=== PATIENT | male | born 1980 | race Caucasian/White ===

== ENCOUNTER 2022-11-05 15:18 | Outpatient (CLI) | payer OTHER, SELFPAY ==
[2022-11-05 15:35] LABS: Hematocrit 47.2 % (42.0-52.0); Hemoglobin 15.7 g/dL (14.0-18.0); Mean Corpuscular HGB Conc 33.3 g/dl (32-36); Mean Corpuscular Hemoglobin 30.3 pg (26-34); Mean Corpuscular Volume 90.9 fl (80-100); Mean Platelet Volume 9.8 fl (7.4-10.4); Platelet Count Result 301 k/mm3 (150-375); Red Blood Count 5.19 M/mm3 (4.6-6.20); Red Cell Distribution Width 12.2 % (11.5-14.5)
[2022-11-05 17:07] LABS: Free T4 Free Thyroxine 1.04 ng/mL (0.78-2.19)
[2022-11-05 19:33] LABS: Anion Gap 7 mmol/L (8-16); Blood Urea Nitrogen 15 mg/dL (9-20); Calcium 9.9 mg/dL (8.4-10.2); Carbon Dioxide 30 mmol/L (22-30); Chloride 102 mmol/L (98-107); Cholesterol 179 mg/dL (0-200); Estimated Glomerular Filt Rate > 60; Glucose 84 mg/dL (65-110); HDL Direct 68 mg/dL; Potassium 4.3 mmol/L (3.4-5.0); Sodium 139 mmol/L (137-145); Triglycerides 43 mg/dL (<150)
[2022-11-05 19:44] LABS: LDL Cholesterol Direct 77 mg/dL
[2022-11-05 20:21] LABS: Prostate Specific Antigen 0.3 ng/mL (< OR = 4.0)
== END 2022-11-05 15:19 | disposition home or self-care (01) ==
LOC: ANHLAB 15:20
PROVIDERS: PCP Family Medicine; Visit Provider Family Medicine
DX: F41.9 Anxiety disorder, unspecified (principal); F32.9 Major depressive disorder, single episode, unspecified; E03.9 Hypothyroidism, unspecified; Z13.220 Encounter for screening for lipoid disorders; Z12.5 Encounter for screening for malignant neoplasm of prostate
CPT/HCPCS: 36415; 80048; 80061; 84153; 84439; 84443; 85027; G0103

== ENCOUNTER 2023-09-01 10:17 | Outpatient (CLI) | payer OTHER, SELFPAY | END 2023-09-01 10:18 | disposition home or self-care (01) | LOC: ANHLAB 10:19 | PROVIDERS: PCP Family Medicine; Visit Provider Nurse Practitioner Family | DX: Z20.828 Contact with and (suspected) exposure to other viral communicable diseases (principal) | CPT/HCPCS: 36415; 86747 ==

== ENCOUNTER 2023-11-11 14:39 | Outpatient (CLI) | payer OTHER, SELFPAY ==
[2023-11-11 15:39] LABS: Anion Gap 9 mmol/L (4-12); Blood Urea Nitrogen 16 mg/dL (9-20); Calcium 9.3 mg/dL (8.4-10.2); Carbon Dioxide 30 mmol/L (22-30); Chloride 96 mmol/L (98-107); Cholesterol 174 mg/dL (0-200); Estimated Glomerular Filt Rate > 60; Glucose 90 mg/dL (65-110); HDL Direct 71 mg/dL; Sodium 135 mmol/L (137-145); Triglycerides 34 mg/dL (<150)
[2023-11-11 15:50] LABS: LDL Cholesterol Direct 81 mg/dL
[2023-11-11 15:55] LABS: Free T4 Free Thyroxine 0.77 ng/mL (0.78-2.19)
[2023-11-11 16:09] LABS: Prostate Specific Antigen 0.4 ng/mL (< OR = 4.0)
== END 2023-11-11 14:40 | disposition home or self-care (01) ==
LOC: ANHLAB 14:44
PROVIDERS: PCP Family Medicine; Visit Provider Nurse Practitioner Family
DX: E03.9 Hypothyroidism, unspecified (principal); F32.9 Major depressive disorder, single episode, unspecified; F41.9 Anxiety disorder, unspecified; Z13.220 Encounter for screening for lipoid disorders; Z12.5 Encounter for screening for malignant neoplasm of prostate
CPT/HCPCS: 36415; 80048; 80061; 84153; 84439; 84443

== ENCOUNTER 2024-11-16 15:17 | Outpatient (CLI) | payer OTHER, SELFPAY ==
--- OUTSIDE RECORDS SUMMARY | 2024-11-16 15:23 | XMS_ITS | Clinical Summary ---
Author Organization [facility] [address] [facility] Address [address] [place] [id number] Care Team Providers Care Roof Slater Name Role Phone Anurag Delaney MD Primary Care Provider + [phone] Jai Chowdhury MD Unavailable [phone] Allergies No known active allergies Medications levothyroxine (SYNTHROID) 25 mcg tablet Take 25 mcg by mouth daily 05/07/2020 Active Active Problems Problem Noted Date Diagnosed Date Positive JENNIE (antinuclear antibody) 05/30/2020 Overview (06/13/2020): Avise 06/05/2020: Positive JENNIE 1:320 homogeneous, positive PS PT 80 Initial labs 05/30/2020: Aldolase 7.4, CRP 2.4, ESR 2, CK 162, TSH/free T4 WNL, myositis panel WNL, LDH WNL 39 yoM presents with recent pos jennie 1:160 and high CK at 1140, although both labs were normal on recheck one week later, per his report. He does admit to extensive exercise/strength training regimen. Has been experiencing generalized body achiness and fatigue. History of hypothyroidism on levothyroxine. No obvious synovitis on exam. 5/5 UE/LE strength on exam. At this time, do not see any obvious evidence for an underlying inflammatory arthritis, CTD, and/or inflammatory myositis. Suspect CK elevations due to his extensive strength training regimen. Will check appropriate serologies. 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 He does admit to extensive exercise/strength training regimen. Has been experiencing generalized body achiness and fatigue. History of hypothyroidism on levothyroxine. No obvious synovitis on exam. 5/5 UE/LE strength on exam. Upon repeat serologies, as shown above, CK, aldolase, LDH were all wnl. Myositis panel was neg. Normal ESR/CRP. Normal tsh/free t4. He did have a persistent pos jennie 1:320 in a homogenous pattern and pos pspt at 80 without other significant autoantibodies. At this time, do not see any obvious evidence to support an underlying inflammatory arthritis and/or ctd. Will have him follow up as needed or if any new symptoms arise. Seen with Dr. Chowdhury. Assessment & Plan (05/30/2020 2:52 PM ENGINEERING EQUIPMENT OPERATOR): 39 yoM presents with recent pos jennie 1:160 and high CK at 1140, although both labs were normal on recheck one week later, per his report. He does admit to extensive exercise/strength training regimen. Has been experiencing generalized body achiness and fatigue. History of hypothyroidism on levothyroxine. No obvious synovitis on exam. 5/5 UE/LE strength on exam. At this time, do not see any obvious evidence for an underlying inflammatory arthritis, CTD, and/or inflammatory myositis. Suspect CK elevations due to his extensive strength training regimen. Will check appropriate serologies. Fu 2 weeks. Sooner if needed. Seen with Dr. Chowdhury. 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 Gender Identity Not on file Sexual Orientation Not on file Obstetrics History Last Filed Vital Signs Vital Sign Reading Time Taken Comments Blood Pressure 126/80 11/29/2020 1:25 PM CDT Pulse 85 11/29/2020 1:25 PM CDT Temperature 36.4 C (97.6 F) 11/29/2020 1:25 PM CDT Respiratory Rate - - Oxygen Saturation - - Inhaled Oxygen Concentration - - Weight 88.5 kg (195 lb) 11/29/2020 1:25 PM CDT Height 167.6 cm (5' 6) 11/29/2020 1:25 PM CDT Body Mass Index 31.47 11/29/2020 1:25 PM CDT Plan of Treatment Not on file Insurance [employer] [facility] Address: [address] [place] [phone] [employer] [facility] [employer]PPO Address: [address] [place] [phone] [employer] [facility] [employer] Address: [address] [address] [place] [address] [employer] [facility] [employer]O Address: [address] [address] Care Teams Roof Slater Relationship Specialty Start Date End Date Anurag Delaney MD PCP - General Family Medicine 05/23/20 Jai Chowdhury MD [facility] [place] [address] Consulting Physician Rheumatology 05/23/20
--- OUTSIDE RECORDS SUMMARY | 2024-11-16 15:23 | XMS_ITS | Referral Summary ---
Author Organization [facility] [address] [facility] Address [address] [place] [phone] Care Team Providers Care Wood Hacker Name Role Phone Anurag Delaney MD Primary Care Provider + [phone] Jai Chowdhury MD Unavailable [phone] Allergies No known active allergies Medications levothyroxine [...] serologies. 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 Gender Identity Not on file Sexual Orientation Not on file Last Filed Vital Signs Vital Sign Reading [...] Plan of Treatment Not on file Insurance [employer] [facility] H[facility]/PPO Address: [address] [place] [phone] [employer] [facility]O Address: [address] [address] [place] [address] [place] [address] [employer] [facility] [employer]PPO Address: [address] [address] [place] [address] [employer] [facility] [employer]O Address: [address] [phone] Care Teams Wood Hacker Relationship Specialty Start Date End Date Anurag Delaney MD PCP - General Family Medicine 05/23/20 Jai Chowdhury MD [facility] [place] [address] Consulting Physician Rheumatology 05/23/20
[2024-11-16 15:43] LABS: Hematocrit 48.0 % (42.0-52.0); Hemoglobin 16.5 g/dL (14.0-18.0); Mean Corpuscular HGB Conc 34.4 g/dl (32-36); Mean Corpuscular Hemoglobin 30.2 pg (26-34); Mean Corpuscular Volume 87.9 fl (80-100); Platelet Count Result 298 k/mm3 (150-375); Red Blood Count 5.46 M/mm3 (4.6-6.20); White Blood Count 7.5 K/mm3 (4.5-10.0)
[2024-11-16 15:56] LABS: Anion Gap 10 mmol/L (4-12); Blood Urea Nitrogen 17 mg/dL (9-20); Calcium 9.9 mg/dL (8.4-10.2); Carbon Dioxide 27 mmol/L (22-30); Chloride 101 mmol/L (98-107); Estimated Glomerular Filt Rate > 60; Glucose 90 mg/dL (65-110); Potassium 4.0 mmol/L (3.4-5.0); Sodium 138 mmol/L (137-145)
[2024-11-16 16:30] LABS: Free T4 Free Thyroxine 0.85 ng/dL (0.78-2.19)
[2024-11-16 16:32] LABS: Prostate Specific Antigen 0.5 ng/mL (< OR = 4.0); Thyroid Stimulating Hormone 4.160 uIU/mL (0.465-4.680)
== END 2024-11-16 15:18 | disposition home or self-care (01) ==
PROVIDERS: PCP Family Medicine; Visit Provider Family Medicine
DX: F41.9 Anxiety disorder, unspecified (principal); F32.9 Major depressive disorder, single episode, unspecified; E03.9 Hypothyroidism, unspecified; Z12.5 Encounter for screening for malignant neoplasm of prostate
CPT/HCPCS: 36415; 80048; 84153; 84439; 84443; 85027; 86800; G0103